=== PATIENT | male | born 1955 | race Caucasian/White ===

== ENCOUNTER 2019-06-29 12:20 | Emergency (ER) | payer MEDICAID ==
[~2019-06-29] VITALS: Ht 175.3 cm; Wt 97.5 kg
[~2019-06-29 12:20] MED LIST: AML5T PO; METO-159 PO; SIMV-8 PO; TAM04C PO; VALS160T43 PO; [UNRECOGNIZED DRUG - CODE] PO
[2019-06-29 12:25] VITALS: BP 129/95
[2019-06-29 13:23] LABS: Urine Bacteria FEW /hpf (None Seen); Urine Blood 3+ /uL (Negative); Urine Specific Gravity 1.014 (1.001-1.035); Urine WBC 90 /hpf (0 - 3)
[2019-06-29] MEDS ORDERED: cefTRIAXone SOD 1,000 MG VL IM ONE (13:45)
[2019-06-29] MEDS ORDERED: PHENAZOPYRIDINE HCL 100 MG TAB PO ONE (13:45)
== END 2019-06-29 14:15 | disposition home or self-care (01) ==
LOC: ER 12:22
DX: N39.0 Urinary tract infection, site not specified (principal); I12.9 Hypertensive chronic kidney disease with stage 1 through stage 4 chronic kidney disease, or unspecified chronic kidney disease; N18.9 Chronic kidney disease, unspecified; Z79.899 Other long term (current) drug therapy
CPT/HCPCS: 74176; 81001; 96372; 99284; J0696

== ENCOUNTER 2019-09-10 18:23 | Emergency (ER) | payer MEDICAID ==
[~2019-09-10] VITALS: Ht 172.7 cm; Wt 90.7 kg
[~2019-09-10 18:23] MED LIST changes: +AMIO200T4 PO; +APIX5TAB PO; +HCTZ25T PO; -METO-159 PO; +METO25TA93 PO; -VALS160T43 PO; -[UNRECOGNIZED DRUG - CODE] PO
[2019-09-10] MEDS ORDERED: MORPHINE SULFATE 4 MG/ML SYR/VIAL IV ONE (19:15)
[2019-09-10] MEDS ORDERED: ONDANSETRON HCL 4 MG/2 ML VIAL IV ONE (19:15)
[2019-09-10 23:18] LABS: Urine Bacteria MOD /hpf (None Seen); Urine Blood Negative /uL (Negative); Urine Mucus FEW (None Seen); Urine Specific Gravity 1.019 (1.001-1.035); Urine WBC 17 /hpf (0 - 3)
[2019-09-11] MEDS ORDERED: ONDANSETRON HCL 4 MG/2 ML VIAL IV ONE (02:00)
[2019-09-11] MEDS ORDERED: HYDROmorphone HCL 2 MG/ML VL IV ONE (02:00)
[2019-09-11 02:18] VITALS: BP 126/86
== END 2019-09-11 03:19 | disposition home or self-care (01) ==
LOC: EDBD 18:23 → ER 18:23
DX: S76.011A Strain of muscle, fascia and tendon of right hip, initial encounter (principal); S83.8X1A Sprain of other specified parts of right knee, initial encounter; I48.91 Unspecified atrial fibrillation; I12.9 Hypertensive chronic kidney disease with stage 1 through stage 4 chronic kidney disease, or unspecified chronic kidney disease; N18.9 Chronic kidney disease, unspecified; E78.5 Hyperlipidemia, unspecified; W19.XXXA Unspecified fall, initial encounter; Y93.01 Activity, walking, marching and hiking; Y92.89 Other specified places as the place of occurrence of the external cause; Y99.8 Other external cause status
CPT/HCPCS: 72131; 73502; 73562; 81001; 96374; 96375; 96376; 99284; J1170; J2270; J2405

== ENCOUNTER 2019-11-13 14:52 | Inpatient (IN) | payer MEDICAID ==
[~2019-11-13] VITALS: Ht 172.7 cm; Wt 98.3 kg
[2019-11-13] MEDS ORDERED: HYDROcodone-ACET 10/325MG TAB PO ONE (16:15)
[2019-11-13] MEDS ORDERED: LIDOCAINE 2% JELLY 11ml (GLYDO) ONE (16:23)
[2019-11-13] MEDS ORDERED: cefTRIAXone 1GM/50ML D5W 50 ML IV ONE (18:00)
[2019-11-13 18:20] LABS: Basophils # (auto) 0.1 10 ^3/uL (0-0.2); Basophils % (auto) 1.2 % (0.0-2.0); Eosinophils # (auto) 0.1 10 ^3/uL (0-0.8); Eosinophils % (auto) 0.8 % (0.0-7.0); Hematocrit 44.1 % (41.0-53.0); Hemoglobin 14.8 g/dL (13.5-17.5); Lymphocytes # (auto) 1.9 10 ^3/uL (0.4-5.4); Lymphocytes % (auto) 18.5 % (10.0-50.0); Mean Corpuscular Hgb Conc. 33.5 g/dL (32.0-36.0); Mean Corpuscular Volume 92.5 fL (80.0-100.0); Monocytes # (auto) 1.1 10 ^3/uL (0-1.3); Neutrophils % (auto) 68.5 % (37.0-80.0); Nucleated Red Blood Cells % 0.2 %; Platelet Count (auto) 264 10^3/uL (140-450); Red Blood Cells 4.77 10^6/uL (4.5-5.90); Red Cell Distribution Width 15.1 % (11.8-14.3); White Blood Cell 10.2 10^3/uL (4.4-10.8)
[2019-11-13 18:39] LABS: BUN/Creatinine Ratio 20.2; Calcium 9.3 mg/dL (8.5-10.1); Potassium 3.2 mmol/L (3.5-5.1)
[2019-11-13] MEDS ORDERED: MORPHINE SULFATE 4 MG/ML SYR/VIAL IV ONE (20:30)
[2019-11-13] MEDS ORDERED: ONDANSETRON HCL 4 MG/2 ML VIAL IV ONE (20:30)
[2019-11-13 21:09] VITALS: BP 123/85
[2019-11-13] MEDS ORDERED: ACETAMINOPHEN 325 MG TAB PO PRN (21:15)
[2019-11-13] MEDS ORDERED: MORPHINE SULFATE 4 MG/ML SYR/VIAL IV PRN (21:15)
[2019-11-13] MEDS ORDERED: DOCUSATE SOD 100 MG CAP PO PRN (21:15)
[2019-11-13] MEDS ORDERED: ONDANSETRON HCL 4 MG/2 ML VIAL IV PRN (21:15)
[2019-11-13] MEDS: SODIUM CHLORIDE 0.9% 1,000 ML IV SCH (21:33)
[2019-11-13] MEDS: POTASSIUM CHL 20MEQ/100ML 100 ML IV SCH (21:33)
[2019-11-13] MEDS: ALBUTEROL SULF 2.5 MG/0.5ML(0.5%) NEB SOLN NEB PRN (21:49)
[2019-11-13] MEDS: IPRATROPIUM BROM 0.5 MG/2.5ML INH SOL NEB PRN (21:49)
[2019-11-13 22:00] VITALS: BP 126/86
[2019-11-13] MEDS: APIXABAN 5 MG TAB PO SCH (22:24)
[2019-11-13] MEDS ORDERED: METO25TA5 PO (23:28)
[2019-11-13] MEDS ORDERED: CHLO25TA22 PO (23:28)
[2019-11-13] MEDS: HYDROcodone-ACET 5/325MG TAB PO PRN (23:42)
[2019-11-14] VITALS (7 sets, daily range): BP systolic 95–126; BP diastolic 59–87
[2019-11-14] MEDS: POTASSIUM CHL 20MEQ/100ML 100 ML IV SCH (00:23)
[2019-11-14] MEDS: SODIUM CHLORIDE 0.9% 1,000 ML IV SCH ×2 (02:00→06:12)
[2019-11-14] MEDS: HYDROcodone-ACET 5/325MG TAB PO PRN ×4 (04:05→20:32)
[2019-11-14 05:23] LABS: Urine Bacteria MOD /hpf (None Seen); Urine Blood 3+ /uL (Negative); Urine Hyaline Cast MOD /lpf (0 - 2); Urine Mucus FEW (None Seen); Urine Specific Gravity 1.022 (1.001-1.035); Urine WBC 553 /hpf (0 - 3); Urine WBC Clumps PRESENT /hpf (None Seen)
[2019-11-14 06:18] LABS: Basophils # (auto) 0.1 10 ^3/uL (0-0.2); Basophils % (auto) 1.1 % (0.0-2.0); Eosinophils # (auto) 0.1 10 ^3/uL (0-0.8); Eosinophils % (auto) 2.1 % (0.0-7.0); Hematocrit 40.8 % (41.0-53.0); Hemoglobin 13.9 g/dL (13.5-17.5); Lymphocytes # (auto) 1.8 10 ^3/uL (0.4-5.4); Lymphocytes % (auto) 27.4 % (10.0-50.0); Mean Corpuscular Hemoglobin 31.5 pg (28.0-32.0); Mean Corpuscular Volume 92.7 fL (80.0-100.0); Monocytes # (auto) 0.8 10 ^3/uL (0-1.3); Monocytes % (auto) 12.3 % (0.0-12.0); Neutrophils # (auto) 3.8 10 ^3/uL (1.6-8.6); Neutrophils % (auto) 57.1 % (37.0-80.0); Nucleated Red Blood Cells % 0.1 %; Platelet Count (auto) 196 10^3/uL (140-450); White Blood Cell 6.7 10^3/uL (4.4-10.8)
[2019-11-14 06:41] LABS: Calcium 8.4 mg/dL (8.5-10.1); Potassium 3.1 mmol/L (3.5-5.1)
[2019-11-14 06:44] LABS: BUN/Creatinine Ratio 21.6
[2019-11-14] MEDS ORDERED: SOD CHL 0.9%/ KCL 40MEQ 1,000 ML IV SCH (08:45)
[2019-11-14] MEDS: IPRATROPIUM BROM 0.5 MG/2.5ML INH SOL NEB PRN (08:55)
[2019-11-14] MEDS: ALBUTEROL SULF 2.5 MG/0.5ML(0.5%) NEB SOLN NEB PRN (08:55)
[2019-11-14] MEDS: METOPROLOL SUCCINATE XL 50 MG TAB PO SCH (09:31)
[2019-11-14] MEDS: AMIODARONE HCL 200 MG TAB PO SCH (09:32)
[2019-11-14] MEDS: TAMSULOSIN HYDROCHLORIDE 0.4 MG CAP PO SCH (09:32)
[2019-11-14] MEDS: amLODIPine BESYLATE 5 MG TAB PO SCH (09:32)
[2019-11-14] MEDS: FINASTERIDE 5 MG TAB PO SCH (09:33)
[2019-11-14] MEDS: APIXABAN 5 MG TAB PO SCH (10:00)
[2019-11-14] MEDS ORDERED: cefTRIAXone 1GM/50ML D5W 50 ML IV SCH (10:00)
[2019-11-14] MEDS: HCTZ 25 MG TAB PO SCH (10:00)
[2019-11-14] MEDS ORDERED: POTASSIUM CHL 20 Meq TABLET PO ONE (12:30)
[2019-11-14] MEDS ORDERED: LIDOCAINE 2% JELLY 11ml (GLYDO) UR ONE (13:15)
[2019-11-14] MEDS ORDERED: MORPHINE SULF INJ 2 MG/ML SYRINGE 1ML IV PRN (20:15)
[2019-11-14] MEDS: ATORVASTATIN 20 MG TAB PO SCH (22:28)
[2019-11-14 23:07] LABS: INR 1.05 (0.9-1.15); Partial Thromboplastin Time 25.9 sec (23.64-32.05)
[2019-11-15] MEDS: HYDROcodone-ACET 5/325MG TAB PO PRN ×4 (00:55→22:00)
[2019-11-15 05:00] VITALS: BP 114/66
[2019-11-15] MEDS: ALBUTEROL SULF 2.5 MG/0.5ML(0.5%) NEB SOLN NEB PRN (07:59)
[2019-11-15] MEDS: IPRATROPIUM BROM 0.5 MG/2.5ML INH SOL NEB PRN (07:59)
[2019-11-15 08:00] VITALS: BP 122/88
[2019-11-15 08:23] VITALS: BP 122/88
[2019-11-15] MEDS ORDERED: cefTRIAXone W LIDOCAINE 1 GM IM IM SCH (10:00)
[2019-11-15] MEDS: METOPROLOL SUCCINATE XL 50 MG TAB PO SCH (10:00)
[2019-11-15] MEDS: TAMSULOSIN HYDROCHLORIDE 0.4 MG CAP PO SCH (10:05)
[2019-11-15] MEDS: AMIODARONE HCL 200 MG TAB PO SCH (10:05)
[2019-11-15] MEDS: FINASTERIDE 5 MG TAB PO SCH (10:06)
[2019-11-15] MEDS: amLODIPine BESYLATE 5 MG TAB PO SCH (10:06)
[2019-11-15] MEDS: HCTZ 25 MG TAB PO SCH (10:07)
[2019-11-15 10:34] LABS: BUN/Creatinine Ratio 21.5; Calcium 8.9 mg/dL (8.5-10.1); Potassium 3.7 mmol/L (3.5-5.1)
[2019-11-15] MEDS ORDERED: MORPHINE SULF INJ 2 MG/ML SYRINGE 1ML IV PRN (11:30)
[2019-11-15] MEDS ORDERED: cefTRIAXone 1GM/50ML D5W 50 ML IV ONE (11:30)
[2019-11-15] MEDS ORDERED: fentaNYL CITRATE 100 MCG/2 ML VL ONE ×2 (11:49→16:31)
[2019-11-15] MEDS ORDERED: PROPOFOL 10 MG/ML 20 ML IV ONE (11:49)
[2019-11-15] MEDS ORDERED: ONDANSETRON HCL 4 MG/2 ML VIAL ONE (11:49)
[2019-11-15] MEDS ORDERED: MIDAZOLAM HCL 1MG/1ML-2 ML VIAL ONE ×2 (11:49→16:22)
[2019-11-15 13:00] VITALS: BP 139/98
[2019-11-15] MEDS ORDERED: SUCCINYLCHOLINE CHLORIDE 20 MG/ML 10ML VIAL IV ONE (16:20)
[2019-11-15] MEDS ORDERED: LIDOCAINE 1% (LOCAL ANESTH.) PF 5ml SDV ONE (16:20)
[2019-11-15] MEDS ORDERED: METOCLOPRAMIDE HCL 5MG/ml INJ 2ml VIAL ONE (16:22)
[2019-11-15] MEDS ORDERED: ETOMIDATE (2MG/ML) 20ML VIAL IV ONE (16:24)
[2019-11-15] MEDS ORDERED: ROCURONIUM 10MG/ML 10ML VIAL IV ONE (16:25)
[2019-11-15] MEDS ORDERED: GLYCOPYRROLATE 0.2 MG/ML 1ML VIAL ONE (16:42)
[2019-11-15] MEDS ORDERED: NEOSTIGMINE 1 MG/ML INJ (10mg/10ML VIAL) ONE (16:42)
[2019-11-15] MEDS ORDERED: HYDROmorphone HCL 2 MG/ML VL IV PRN ×2 (16:45)
[2019-11-15] MEDS ORDERED: ONDANSETRON HCL 4 MG/2 ML VIAL IV PRN (16:45)
[2019-11-15 21:48] VITALS: BP 110/65
[2019-11-15] MEDS: ATORVASTATIN 20 MG TAB PO SCH (21:57)
[2019-11-16] MEDS: HYDROcodone-ACET 5/325MG TAB PO PRN ×2 (05:04→09:49)
[2019-11-16 05:21] VITALS: BP_SYST 118; BP_SYST 130; BP_DIAS 74; BP_DIAS 76
[2019-11-16 06:57] LABS: BUN/Creatinine Ratio 18.3; Calcium 8.5 mg/dL (8.5-10.1); Potassium 3.2 mmol/L (3.5-5.1)
[2019-11-16 08:00] VITALS: BP 101/66
[2019-11-16 09:00] VITALS: BP 101/66
[2019-11-16] MEDS ORDERED: cefTRIAXone 1GM/50ML D5W 50 ML IV SCH (09:00)
[2019-11-16] MEDS: AMIODARONE HCL 200 MG TAB PO SCH (09:48)
[2019-11-16] MEDS: TAMSULOSIN HYDROCHLORIDE 0.4 MG CAP PO SCH (09:48)
[2019-11-16] MEDS: FINASTERIDE 5 MG TAB PO SCH (09:49)
[2019-11-16] MEDS: METOPROLOL SUCCINATE XL 50 MG TAB PO SCH (09:50)
[2019-11-16] MEDS: amLODIPine BESYLATE 5 MG TAB PO SCH (10:00)
[2019-11-16] MEDS: HCTZ 25 MG TAB PO SCH (10:00)
[2019-11-16 13:00] VITALS: BP 104/77
[2019-11-16] MEDS ORDERED: POTASSIUM CHL 20 Meq TABLET PO ONE (14:00)
[2019-11-16 15:19] VITALS: BP 112/68
[2019-11-16] MEDS ORDERED: levoFLOXacin 750MG 150 ML IV ONE (16:00)
[2019-11-16] MEDS ORDERED: NS 0.9% IV SCH (18:00)
[2019-11-16] MEDS ORDERED: AMPICILLIN IV SCH (18:00)
[2019-11-17] MEDS ORDERED: levoFLOXacin 750MG 150 ML IV SCH (10:00)
== END 2019-11-16 16:00 | disposition home health service (06) | DRG 484 ==
LOC: ER 14:52 → OVERFLOW 14:53 → WEST WING 22:00
PROVIDERS: ADMIT Hospitalist; ATTEND Internal Medicine Nephrology
PROC: 0T9B80Z Drainage of Bladder with Drainage Device, Via Natural or Artificial Opening Endoscopic (ICD-10-PCS; 2019-11-15)
PROC: 0TBC8ZZ Excision of Bladder Neck, Via Natural or Artificial Opening Endoscopic (ICD-10-PCS; principal; 2019-11-15 16:20)
DX: N40.1 Benign prostatic hyperplasia with lower urinary tract symptoms (principal); E11.22 Type 2 diabetes mellitus with diabetic chronic kidney disease; N17.9 Acute kidney failure, unspecified; I48.91 Unspecified atrial fibrillation; N18.3 Chronic kidney disease, stage 3 (moderate); R33.8 Other retention of urine; N13.8 Other obstructive and reflux uropathy; B95.2 Enterococcus as the cause of diseases classified elsewhere; N39.0 Urinary tract infection, site not specified; E78.5 Hyperlipidemia, unspecified; I12.9 Hypertensive chronic kidney disease with stage 1 through stage 4 chronic kidney disease, or unspecified chronic kidney disease; J44.9 Chronic obstructive pulmonary disease, unspecified; Z80.3 Family history of malignant neoplasm of breast; Z80.42 Family history of malignant neoplasm of prostate; Z80.8 Family history of malignant neoplasm of other organs or systems; Z82.49 Family history of ischemic heart disease and other diseases of the circulatory system; Z90.79 Acquired absence of other genital organ(s); Z83.3 Family history of diabetes mellitus; Z87.11 Personal history of peptic ulcer disease; Z87.891 Personal history of nicotine dependence
CPT/HCPCS: 36415; 71045; 76705; 80048; 81001; 85025; 85610; 85730; 87086; 87088; 87186; 94640; 96365; 96366; 96375; G0378; J0330; J0696; J2250; J2405; J2704; J3480